=== PATIENT | male | born 1980 | race Caucasian/White ===

== ENCOUNTER 2019-02-20 19:06 | Emergency (ER) | payer SELFPAY ==
[2019-02-20 19:28] VITALS: BP 127/84
--- NOTE | 2019-02-20 19:44 | UC ---
Skin Complaint HPI - HPI Summary HPI Summary: 38 y/o male presents to the urgent care c/o noticed rash all over body today after being "sick for 5 days"-- states he had chills, bodyaches when he was sick. denies pain/itch. no fever/chills today. - History of Current Complaint Chief Complaint: [facility]kin Time Seen by Provider: 02/20/19 19:42 Stated Complaint: SKIN CONCERN Hx Obtained From: Patient Onset/Duration: Gradual Onset, Lasting Days - 5 days Pain Intensity: 0 - Allergy/Home Medications Allergies/Adverse Reactions: Allergies Allergy/AdvReac Type Severity Reaction Status Date / Time Penicillins Allergy Unknown Verified 02/20/19 19:23 Reaction Details Home Medications: Home Medications NK [No Home Medications Reported] 02/20/19 [History Confirmed 02/20/19] PMH/Surg Hx/FS Hx/Imm Hx Previously Healthy: Yes - Surgical History Surgical History: Yes Surgery Procedure, Year, and Place: LEFT ARM- STEEL PLATE - Social History Alcohol Use: None Substance Use Type: None Smoking Status (MU): Heavy Every Day Tobacco Smoker Type: Cigarettes Amount Used/How Often: 3/4 PPD Physical Exam Vital Signs: Initial Vital Signs Temp 98.8 F 02/20/19 19:24 Pulse 95 02/20/19 19:24 Resp 16 02/20/19 19:24 BP 127/84 02/20/19 19:24 Pulse Ox 99 02/20/19 19:24 Course/Dx - Differential Diagnoses - Skin Complaint Differential Diagnoses: Abscess, Allergic Reaction, Contact Dermatitis, Impetigo , Local Allergic Reaction, Poison [place], Poison [place], Tick Born Illness - Diagnoses Provider Diagnosis: Erythema multiforme Discharge - Sign-Out/Discharge Documenting (check all that apply): Patient Departure - D/C Home All imaging exams completed and their final reports reviewed: No Studies - Discharge Plan Condition: Stable Disposition: HOME Patient Education Materials: Acute Rash (ED) Referrals: [facility] [place] [facility] [Outside] - 3 Days Additional Instructions: 1- Your rash is probably Erythema Multiforme due to a viral syndrome. 2-Please take ibuprofen PO q6-8hrs prn as instructed after meals if chills or fever returns. Increase fluid intake, eat well, rest and avoid strenuous exercise 3-If symptoms do not improve or worsen please return to the urgent care or f/u with your PCP or go to the ER for further evaluation and treatment Erythema multiforme (EM) is an acute, immune-mediated disorder that involves the skin and/or mucosal surfaces. The treatment of acute EM varies according to the severity of the acute eruption and the presence or absence of recurrent disease. Many cases of EM occur secondary to herpes simplex virus (HSV) infection. In patients with HSV-induced EM, treatment with oral antivirals in the acute setting does not alter the course of EM, and is not indicated. Most patients with EM can be managed with symptomatic therapy alone. For patients with cutaneous disease and/or mild oral mucosal involvement, treatment with topical corticosteroids, oral antihistamines, and/or an anesthetic mouthwash is sufficient. - Billing Disposition and Condition Condition: STABLE Disposition: Home
== END 2019-02-20 20:16 | disposition home or self-care (01) ==
LOC: UCCORT 19:06
DX: L51.9 Erythema multiforme, unspecified (principal); Z88.0 Allergy status to penicillin; F17.210 Nicotine dependence, cigarettes, uncomplicated
CPT/HCPCS: 99201; G0463